=== PATIENT | male | born 1960 | race Caucasian/White ===

== ENCOUNTER → 2023-12-11 | Day surgery (SDC) | payer MEDICAID ==
[~2023-12-11] VITALS: Ht 175.3 cm; Wt 108.9 kg
[~2023-12-11] MED LIST: BUPIVACAINE HCL/PF 0.5% (5MG/ML) 10ML ONE; CEFAZOLIN SODIUM 1000MG/VIAL ONE; DEXAMETHASONE 4MG/ML 1ML VIAL ONE; FENTANYL CITRATE/PF 50MCG/ML 2ML VIAL ONE; IBUP-1653 PO; LABETALOL 5MG/ML 4ML INJ IV PRN; LIDOCAINE HCL 1% 10 MG/ML 10ML VIAL ONE; MEPERIDINE HCL/PF 25MG/ML CPJ IV PRN; MIDAZOLAM HCL 2 MG/2 ML VIAL ONE; ONDANSETRON HCL 4MG/2ML INJ IV PRN; POLYMYXIN B SULFATE 500000 UNITS/VIAL ONE; PROPOFOL 200MG/20ML VIAL IV ONE; ROCURONIUM BROMIDE 10MG/ML VIAL 5ML IV ONE; SKIN ADHESIVE 0.7 GM EA TOP ONE; SUGAMMADEX SODIUM 200MG/2ML VIAL IV ONE
[2023-12-11] MEDS: LACTATED RINGERS 1,000 ML IV SCH (09:12)
[2023-12-11] MEDS: HYDROMORPHONE HCL/PF 1MG/ML INJ IV PRN (15:11)
[2023-12-11 15:28] VITALS: BP 113/74; PULSE 71; RESP 15
[2023-12-11] MEDS: HYDROCODONE/ACETAMINOPHEN 5/325MG TABLET PO PRN (15:28)
== END | disposition home or self-care (01) ==
LOC: OR 07:55
PROVIDERS: ATTEND Specialist
DX: K40.90 Unilateral inguinal hernia, without obstruction or gangrene, not specified as recurrent (principal); Z86.16 Personal history of COVID-19; Z79.899 Other long term (current) drug therapy; Z98.890 Other specified postprocedural states
CPT/HCPCS: 49505; J3010; J3490 ×4; J0690; J1100; J2250; J2405; J2704; J1171; C1781